=== PATIENT | female | born 1955 | race Caucasian/White ===

== ENCOUNTER 2020-12-02 11:25 | Emergency (ER) | payer MEDICARE, OTHER ==
[~2020-12-02] VITALS: Ht 167.6 cm; Wt 81.8 kg
[2020-12-02] MEDS ORDERED: IV NORMAL SALINE 1000ML BAG 1,000 ML IV ONE ×2 (11:45→14:15)
[2020-12-02 11:57] LABS: BASO # 0.1 x10^3/uL (0.0-0.2); BASO % 1 % (0-3); EOS # 0.1 x10^3/uL (0.0-0.7); EOS % 2 % (0-3); HEMATOCRIT 39.5 % (36.0-47.0); HEMOGLOBIN 13.5 g/dL (12.0-15.5); LYMPH # 2.4 x10^3/uL (1.0-4.8); LYMPH % 34 % (24-48); MEAN CORPUSCULAR HEMOGLOBIN 31 pg (25-35); MEAN CORPUSCULAR HGB CONC 34 g/dL (31-37); MEAN CORPUSCULAR VOLUME 91 fL (79-100); MONO # 0.5 x10^3/uL (0.0-1.1); MONO % 8 % (0-9); NEUT # 3.9 x10^3/uL (1.8-7.7); NEUT % 56 % (31-73); PLATELET COUNT 252 x10^3/uL (140-400); RED BLOOD COUNT 4.36 x10^6/uL (3.50-5.40); RED CELL DISTRIBUTION WIDTH 13.9 % (11.5-14.5); WHITE BLOOD COUNT 6.9 x10^3/uL (4.0-11.0)
[2020-12-02 12:03] LABS: CALCIUM 9.7 mg/dL (8.5-10.1); CREATININE 1.3 mg/dL (0.6-1.0); GFR 41.1; POTASSIUM 4.8 mmol/L (3.5-5.1)
[2020-12-02 12:09] LABS: ALBUMIN 4.6 g/dL (3.4-5.0); ALBUMIN/GLOBULIN RATIO 1.6 (1.0-1.7); MAGNESIUM 2.1 mg/dL (1.8-2.4); TOTAL BILIRUBIN 0.6 mg/dL (0.2-1.0); TOTAL PROTEIN 7.5 g/dL (6.4-8.2)
--- NOTE | 2020-12-02 12:10 | ED.ADGEN ---
Past Medical History Past Medical History: High Cholesterol, Hypertension, Hypothyroid Past Surgical History: Appendectomy, Other Additional Past Surgical Histo: BREAST REDUCTION,LAMINECTOMY Smoking Status: Never Smoker Alcohol Use: Occasionally General Adult EDM: Chief Complaint: SYNCOPE HPI: HPI: Patient is a 65 year old female brought in by EMS after syncopal episode. Patient states she been out for a few hours working in the yard in the heat mowing. Says she had felt lightheaded and wanted to get a drink of water and sat down. helped her lay down and she "passed out". On EMS arrival she was found to be orthostatic. Patient was working in the yard yesterday and states around the same time she started feeling lightheaded. Takes amlodipine for hypertension. Patient acknowledges that she has not been keeping up with hydration. Review of Systems: Review of Systems: All other systems within normal limits except for as noted in the HPI Current Medications: Current Medications Medications (Trade) Dose Ordered Sig/Prabhu Start Time Stop Time Status Last Admin Dose Admin Sodium Chloride 1,000 ml @ 1,000 mls/hr 1X ONCE 12/02/20 14:15 12/02/20 15:14 DC 12/02/20 15:01 1,000 MLS/HR Allergies: Allergies: Allergies Coded Allergies Type Severity Reaction Last Updated Verified bacitracin Allergy Intermediate UNKNOWN 12/02/20 Yes neomycin Allergy Intermediate UNKNOWN 12/02/20 Yes polymyxin B Allergy Intermediate UNKNOWN 12/02/20 Yes Physical Exam: PE: Constitutional: Well developed, well nourished, no acute distress, non-toxic appearance. [] HENT: Normocephalic, atraumatic, bilateral external ears normal, nose normal. Dry mucous membrane [] Eyes: PERRLA, conjunctiva normal, no discharge. [] Neck: No rigidity, supple, no stridor. [] Cardiovascular: Regular rate and rhythm, brisk cap refill [] Lungs & Thorax: Non labored symmetric respirations, no tachypnea or respiratory distress [] Abdomen: Soft, nondistended. Skin: Warm, dry, no erythema, no rash. [] Back: Unremarkable Extremities: No deformities, range of motion grossly intact, no lower extremity edema [] Neurologic: Alert and oriented X 3, no focal deficits noted. [] Psychologic: Affect normal, judgement normal, mood normal. [] Current Patient Data: Labs: Laboratory Tests Test 12/02/20 11:43 White Blood Count 6.9 x10^3/uL (4.0-11.0) Red Blood Count 4.36 x10^6/uL (3.50-5.40) Hemoglobin 13.5 g/dL (12.0-15.5) Hematocrit 39.5 % (36.0-47.0) Mean Corpuscular Volume 91 fL (79-100) Mean Corpuscular Hemoglobin 31 pg (25-35) Mean Corpuscular Hemoglobin Concent 34 g/dL (31-37) Red Cell Distribution Width 13.9 % (11.5-14.5) Platelet Count 252 x10^3/uL (140-400) Neutrophils (%) (Auto) 56 % (31-73) Lymphocytes (%) (Auto) 34 % (24-48) Monocytes (%) (Auto) 8 % (0-9) Eosinophils (%) (Auto) 2 % (0-3) Basophils (%) (Auto) 1 % (0-3) Neutrophils # (Auto) 3.9 x10^3/uL (1.8-7.7) Lymphocytes # (Auto) 2.4 x10^3/uL (1.0-4.8) Monocytes # (Auto) 0.5 x10^3/uL (0.0-1.1) Eosinophils # (Auto) 0.1 x10^3/uL (0.0-0.7) Basophils # (Auto) 0.1 x10^3/uL (0.0-0.2) Sodium Level 138 mmol/L (136-145) Potassium Level 4.8 mmol/L (3.5-5.1) Chloride Level 103 mmol/L (98-107) Carbon Dioxide Level 24 mmol/L (21-32) Anion Gap 11 (6-14) Blood Urea Nitrogen 19 mg/dL (7-20) Creatinine 1.3 mg/dL (0.6-1.0) H Estimated GFR (Cockcroft-Gault) 41.1 BUN/Creatinine Ratio 15 (6-20) Glucose Level 121 mg/dL (70-99) H Calcium Level 9.7 mg/dL (8.5-10.1) Magnesium Level 2.1 mg/dL (1.8-2.4) Total Bilirubin 0.6 mg/dL (0.2-1.0) Aspartate Amino Transferase (AST) 25 U/L (15-37) Alanine Aminotransferase (ALT) 26 U/L (14-59) Alkaline Phosphatase 98 U/L (46-116) Troponin I Quantitative < 0.017 ng/mL (0.000-0.055) DS-Rvx-[id number]-Type Natriuretic Peptide 128 pg/mL (0-124) H Total Protein 7.5 g/dL (6.4-8.2) Albumin 4.6 g/dL (3.4-5.0) Albumin/Globulin Ratio 1.6 (1.0-1.7) Laboratory Tests 12/02/20 11:43 Laboratory Tests 12/02/20 11:43 Vital Signs: Vital Signs Date Time Temp Pulse Resp B/P (MAP) Pulse Ox O2 Delivery O2 Flow Rate FiO2 12/02/20 11:25 97.8 64 17 117/58 (77) 98 Room Air 97.8 EKG: EKG: [] Heart Score: C/O Chest Pain: No HEART Score for Chest Pain: HEART Score for Chest Pain Response (Comments) Value History Slighlty/Non-Suspicious 0 ECG Normal 0 Age >45 - < 65 1 Risk Factors 1 or 2 Risk Factors 1 Total 2 Risk Factors: Risk Factors: DM, Current or recent (<one month) smoker, HTN, HLP, family history of CAD, obesity. Risk Scores: Score 0 - 3: 2.5% MACE over next 6 weeks - Discharge Home Score 4 - 6: 20.3% MACE over next 6 weeks - Admit for Clinical Observation Score 7 - 10: 72.7% MACE over next 6 weeks - Early Invasive Strategies Radiology/Procedures: Radiology/Procedures: [] Course & Med Decision Making: Course & Med Decision Making Pertinent Labs and Imaging studies reviewed. (See chart for details) Patient feeling better with fluids and making urine. [] Dragon Disclaimer: Dragon Disclaimer: This electronic medical record was generated, in whole or in part, using a voice recognition dictation system. Departure Departure Impression: Primary Impression: Dehydration Disposition: HOME / SELF CARE / HOMELESS Condition: STABLE Referrals: UNKNOWN PCP NAME (PCP) Patient Instructions: Near-Syncope MARIA LUISA SEARS MD Dec 02, 2020 12:10
--- NOTE | 2020-12-02 14:51 | EKG ---
[facility] [address] [place] [id number] Test Date: 2020-12-02 Test Time: 11:28:59 Pat Name: ARACELIS ORR Department: Room: Gender: F Building Maintenance Mechanic: : [id number] Requested By: MARIA LUISA SEARS Order Number: [id number] Reading MD: Matt Stroud Measurements Intervals [place] Rate: 61 P: -25 [place]: 126 QRS: 11 QRSD: 76 T: 26 QT: 430 QTc: 434 Interpretive Statements SINUS RHYTHM NORMAL ECG RI6.02 No previous ECG available for comparison Electronically Signed On 12-06-2020 12:33:23 CDT by Matt Stroud
[2020-12-02 15:15] LABS: BILIRUBIN,URINE NEGATIVE (NEG); CLARITY,URINE CLEAR; COLOR,URINE YELLOW; NITRITE,URINE NEGATIVE (NEG); PROTEIN,URINE NEGATIVE (NEG-TRACE); UROBILINOGEN,URINE 0.2 mg/dL (0.2 mg/dL)
[2020-12-02 15:26] LABS: BACTERIA,URINE 0 /HPF (0-FEW); RBC,URINE 0 /HPF (0-2); WBC,URINE OCC /HPF (0-4)
[2020-12-02 15:27] LABS: HYALINE CASTS, URINE OCCASIONAL /HPF
[2020-12-02 15:33] VITALS: BP 123/58
== END 2020-12-02 15:56 | disposition home or self-care (01) ==
LOC: ER 11:25
DX: E86.0 Dehydration (principal); E78.00 Pure hypercholesterolemia, unspecified; I10 Essential (primary) hypertension; E03.9 Hypothyroidism, unspecified; Z90.89 Acquired absence of other organs; Z88.1 Allergy status to other antibiotic agents; Z88.8 Allergy status to other drugs, medicaments and biological substances
CPT/HCPCS: 36415; 80053; 81001; 83735; 83880; 84484; 85025; 93005; 96360; 96361; 99285; J7030